=== PATIENT | male | born 1955 | race American Indian/Alaskan Native ===

== ENCOUNTER 2017-12-19 09:23 | Emergency (ER) | payer MEDICAID, OTHER ==
[2017-12-19 09:34] VITALS: TEMP 98.3; O2SAT 98
--- NOTE | 2017-12-19 10:17 | ED PDOC ---
Arrival/HPI - General Chief Complaint: GI Problem Time Seen by Provider: 12/19/17 10:00 Historian: Patient - History of Present Illness Narrative History of Present Illness (Text): 12/19/17 10:15 62-year-old male with no past medical history presents today with 1 episode of bright red blood per rectum after bowel movement. Patient states yesterday he was straining to have a bowel movement but did not have any pain. Patient states when he got up from the toilet before he noticed bright red blood filling the toilet. Patient states when he wiped he noticed bright red blood on the toilet paper. Patient states he still did not have any pain to the rectum and does not have any pain to the rectum. Patient states since then he has had 2 normal bowel movements without any bleeding. He denies chest pain or shortness of breath. Denies fevers or chills. Denies dizziness or weakness. Denies urinary symptoms. Patient denies abdominal pain. No nausea vomiting or diarrhea. No other complaints Past Medical History - Provider Review Nursing Documentation Reviewed: Yes - Travel History Have you recently traveled outside [place] w/in the past 3 mons?: No - Tetanus Immunization Tetanus Immunization: Unknown - Psychiatric Hx Psychophysiologic Disorder: No Hx Substance Use: No Family/Social History - Physician Review Nursing Documentation Reviewed: Yes Family/Social History: Unknown Family HX Smoking Status: Former Smoker Hx Alcohol Use: Yes Frequency of alcohol use: Daily Hx Substance Use: No Allergies/Home Meds Allergies/Adverse Reactions: Allergies No Known Allergies Allergy (Verified 12/19/17 09:30) Home Medications: Home Meds Medication Instructions Recorded Confirmed No Known Home Med 12/19/17 12/19/17 Review of Systems - Review of Systems Constitutional: absent: Fatigue, Fevers Respiratory: absent: SOB, Cough Cardiovascular: absent: Chest Pain, Palpitations Gastrointestinal: Hematochezia. absent: Abdominal Pain, Constipation, Nausea, Vomiting Genitourinary Male: absent: Dysuria, Frequency, Hematuria Musculoskeletal: absent: Arthralgias, Back Pain, Neck Pain Skin: absent: Rash, Pruritis Neurological: absent: Headache, Dizziness Psychiatric: absent: Anxiety, Depression, Suicidal Ideation Physical Exam Vital Signs Reviewed: Yes Vital Signs Temp Pulse Resp BP Pulse Ox 12/19/17 11:30 68 18 162/96 H 98 12/19/17 09:30 98.3 F 66 16 168/106 H 98 Temperature: Afebrile Blood Pressure: Hypertensive Pulse: Regular Respiratory Rate: Normal Appearance: Positive for: Well-Appearing, Non-Toxic, Comfortable Pain Distress: None Mental Status: Positive for: Alert and Oriented X 3 - Systems Exam Head: Present: Atraumatic Mouth: Present: Moist Mucous Membranes Neck: Present: Normal Range of Motion Respiratory/Chest: Present: Clear to Auscultation, Good Air Exchange. No: Respiratory Distress, Accessory Muscle Use Cardiovascular: Present: Regular Rate and Rhythm, Normal S1, S2. No: Murmurs Abdomen: Present: Normal Bowel Sounds. No: Tenderness, Distention, Peritoneal Signs, Rebound, Guarding Rectal: Present: Normal Rectal Tone. No: Occult Blood, Rectal Tenderness, Gross Blood, Melena, Hemorrhoids, Fissures, Nodule/Mass/Lesions Back: Present: Normal Inspection. No: CVA Tenderness Upper Extremity: Present: Normal ROM Lower Extremity: Present: Normal ROM Neurological: Present: GCS=15, Speech Normal, Gait Normal Skin: Present: Warm, Dry, Normal Color. No: Rashes Psychiatric: Present: Alert, Oriented x 3 Medical Decision Making ED Course and Treatment: 12/19/17 10:17 62yr old male with 1 episode of painless bright red blood per rectum after bowel movement yesterday. cbc wnl cmp wnl pt/ptt; wnl pt is non toxic well appearing; no distress. stable vitals. advised patient of elevated blood pressure and need for f/u with PMD for re- evaluation. 12/19/17 11:33 advised patient to f/u with PMD and GI specialist. advised patient that he will need colonoscopy. advised immediate return if bleeding returns, advised immediate return if symptoms worsen,persist or if new symptoms develop; High fevers, pain, bleeding, dizziness, weakness, or if any other concerning symptoms develop. Patient verbalizes understanding of discharge instructions and need for immediate followup. all aspects of this case were discussed the attending of record. Impression; rectal bleeding Follow up with the primary care physician within the next 2 days Follow up with the GI specialist within the next 2 days. immediate return if bleeding returns! Return immediately if symptoms worsen,persist or if new symptoms develop; High fevers, pain, bleeding, dizziness, weakness, or if any other concerning symptoms develop. You need to have an Outpatient colonoscopy. - Lab Interpretations Lab Results: 12/19/17 10:11 12/19/17 10:30 Lab Results 12/19/17 10:30: Sodium 142, Potassium 4.1, Chloride 107, Carbon Dioxide 27, Anion Gap 12, BUN 11, Creatinine 0.8, Est GFR ( Amer) > 60, Est GFR (Non- Af Amer) > 60, Random Glucose 104, Calcium 9.5, Total Bilirubin 0.5, AST 29, ALT 25, Alkaline Phosphatase 57, Total Protein 6.7, Albumin 3.7, Globulin 3.0, Albumin/Globulin Ratio 1.3 12/19/17 10:19: PT 11.2, INR 0.97, APTT 33.7 12/19/17 10:11: WBC 7.1, RBC 3.98, Hgb 12.4 L, Hct 38.6 L, MCV 97.0, MCH 31.2, MCHC 32.1, RDW 12.4, Plt Count 231, MPV 11.2 H, Gran % 55.7, Lymph % (Auto) 28.1 , [place] % (Auto) 13.0 H, Eos % (Auto) 3.1, Baso % (Auto) 0.1, Gran # 3.94, Lymph # (Auto) 2.0, [place] # (Auto) 0.9 H, Eos # (Auto) 0.2, Baso # (Auto) 0.01 Disposition/Present on Arrival - Present on Arrival Any Indicators Present on Arrival: No History of DVT/PE: No History of Uncontrolled Diabetes: No Urinary Catheter: No History of Decub. Ulcer: No History Surgical Site Infection Following: None - Disposition Have Diagnosis and Disposition been Completed?: Yes Diagnosis: Bloody stool Disposition: HOME/ ROUTINE Disposition Time: 11:37 Patient Plan: Discharge Patient Problems: Current Active Problems Problem Status Onset Bloody stool Acute Condition: GOOD Discharge Instructions (ExitCare): Bloody Stools, Adult (DC) Additional Instructions: Follow up with the primary care physician within the next 2 days Follow up with the GI specialist within the next 2 days. immediate return if bleeding returns! Return immediately if symptoms worsen,persist or if new symptoms develop; High fevers, pain, bleeding, dizziness, weakness, or if any other concerning symptoms develop. You need to have an Outpatient colonoscopy. Referrals: [facility] [place] [Outside] - Follow up with primary Ariel Patel MD [Staff Provider] - Follow up with primary Arben Frias MD [Medical Doctor] - Follow up with primary Forms: [employer] ([place]), WORK NOTE
[2017-12-19 10:49] LABS: BASO # 0.01 K/mm3 (0.0-2.0); BASO % 0.1 % (0.0-3.0); EOS # 0.2 (0.0-0.7); EOS % 3.1 % (1.5-5.0); GRAN # 3.94 (1.4-6.5); GRAN % 55.7 % (50.0-68.0); HEMOGLOBIN 12.4 g/dL (14.0-18.0); LYMPH % 28.1 % (22.0-35.0); MEAN CORPUSCULAR HEMOGLOBIN 31.2 pg (25.0-35.0); MEAN CORPUSCULAR HGB CONC 32.1 g/dl (31.0-37.0); MEAN PLATELET VOLUME 11.2 fl (7.0-11.0); MONO # 0.9 (0.1-0.6); RBC 3.98 10^6/uL (3.5-6.1); RED CELL DISTRIBUTION WIDTH 12.4 % (11.5-14.5); WHITE BLOOD COUNT 7.1 10^3/ul (4.5-11.0)
[2017-12-19 11:01] LABS: INR 0.97 (0.93-1.08); PARTIAL THROMBOPLASTIN TIME 33.7 Seconds (25.1-36.5); PROTHROMBIN TIME 11.2 SECONDS (9.4-12.5)
[2017-12-19 11:07] LABS: ALB/GLOB RATIO 1.3 (1.1-1.8); ALBUMIN 3.7 g/dL (3.0-4.8); ALT/SGPT 25 U/L (7-56); AST/SGOT 29 U/L (17-59); BLOOD UREA NITROGEN 11 mg/dL (7-21); CALCIUM 9.5 mg/dL (8.4-10.5); GFR AFRICAN-AMERICAN > 60; GFR NON-AFRICAN AMERICAN > 60
[2017-12-19 11:30] VITALS: BP 162/96; PULSE 68; RESP 18
== END 2017-12-19 12:10 | disposition home or self-care (01) ==
LOC: ED 09:23
DX: K92.1 Melena (principal); Z87.891 Personal history of nicotine dependence